=== PATIENT | male | born 1960 | race Caucasian/White ===

== ENCOUNTER 2019-08-01 18:19 | Inpatient (IN) ==
[2019-08-01] MEDS ORDERED: NS 1,000 ML IV ONE ×2 (19:52→21:20)
[2019-08-01] MEDS ORDERED: GLUCAGON IV ONE (19:52)
[2019-08-01 20:24] LABS: AGAP 22; ALBUMIN 4.6 g/dL (3.5-5.0); ALKALINE PHOSPHATASE 91 U/L (32-122); BUN 23 mg/dL (8-22); CALCIUM 9.4 mg/dL (8.8-10.2); CHLORIDE 99 mmol/L (98-107); COSMO 294; ESTIMATED GFR > 60; GLUCOSE 270 mg/dL (70-104); GOT 12 U/L (10-34); GPT 22 U/L (10-44); POTASSIUM 4.1 mmol/L (3.5-5.1); SODIUM 141 mmol/L (136-145); TCO2 21 mmol/L (25-35)
[2019-08-01 20:39] LABS: BASO# 0.07 X1000 (0.0-0.2); BASO% 0.3 % (0.0-0.8); EOS# 0.02 X1000 (0.0-0.7); EOS% 0.1 % (0.0-10.0); HEMATOCRIT 48.6 % (42.0-52.0); HEMOGLOBIN 16.2 g/dL (14.0-18.0); IMM GRAN# 0.09 X1000 (0.0-0.04); IMM GRAN% 0.3 % (0.0-0.5); LYMPH# 2.43 X1000 (1.2-3.4); LYMPH% 9.2 % (20.5-51.1); MCH 29.8 PG (27-31); MCHC 33.3 g/dL (33-37); MCV 89.3 FL (81-99); MONO# 2.17 X1000 (0.11-0.59); MONO% 8.2 % (1.7-9.3); MPV 11.5 FL (7.4-10.4); NEUT# 21.53 X1000 (1.4-6.5); NEUT% 81.9 % (42.2-75.2); PLT 376 X1000 (130-400); RBC 5.44 XMIL (4.7-6.1); RDW 12.9 % (11.5-14.5); WBC 26.31 X1000 (4.8-10.8)
--- NOTE | 2019-08-01 20:58 | Diag Imaging Result Doc PS360 ---
EXAM: CHEST-1 VIEW - 08/01/2019 HISTORY: food bolus, concern for aspiration. TECHNIQUE: Portable chest COMPARISON: None. FINDINGS: There is a large right pneumothorax. There is some depression of the right hemidiaphragm and there is mild cardiomediastinal shift to the left, which suggests associated tension. There is no consolidation or pleural effusion identified. Heart size is normal. IMPRESSION: Large pneumothorax on the right, with evidence of tension. This report was discussed with Dr. Ana Cristina Archibald on 08/01/2019 at 8:53 PM and was readback. Electronically signed by Adam Cisneros 08/01/2019 8:56 PM
[2019-08-01] MEDS ORDERED: FENTANYL ONE (21:09)
[2019-08-01] MEDS ORDERED: FENTANYL IV ONE (21:12)
[2019-08-01] MEDS ORDERED: NS 1,000 ML ONE (21:14)
[2019-08-01] MEDS ORDERED: XYLOCAINE-MPF 1% ONE (21:18)
[2019-08-01] MEDS ORDERED: XYLOCAINE-MPF 1% INJ ONE (21:25)
--- NOTE | 2019-08-01 22:14 | Diag Imaging Result Doc PS360 ---
EXAM: CHEST-PORTABLE - 08/01/2019 HISTORY: POST CHEST TUBE TECHNIQUE: Portable chest COMPARISON: Prior portable chest of 08/01/2019 FINDINGS: There are two images obtained. There has been interval placement of a right chest tube, which appears to have been repositioned between the two images. On the second image, the tip of the tube is located at the medial mid right thorax. There has been associated resolution or near resolution of the previous large right pneumothorax. There is no consolidation or pleural effusion identified. Heart size is normal. IMPRESSION: Interval placement of right chest tube, with associated resolution or near resolution of the previous right pneumothorax. Electronically signed by Adam Cisneros 08/01/2019 10:12 PM
--- NOTE | 2019-08-01 22:31 | PROVIDER DOCUMENTATION ---
This chart was entered by Isis Silverio Scribe, acting as scribe for Ana Cristina Archibald DO. HPI-General Adult - General Chief Complaint: Foreign Body/Throat Stated Complaint: FOREIGN OBJECT - THROAT Time Seen by Provider: 08/01/19 19:39 Source: patient Allergies/Adverse Reactions: Patient Allergies Allergy/AdvReac Type Severity Reaction Status Date / Time No Known Allergies Allergy Verified 08/01/19 18:32 Home Medications: Home Medication List Medication Instructions Recorded Confirmed Last Taken Type Glimepiride 1 tab PO DIRECTED 03/08/18 08/01/19 Unknown History Escitalopram Oxalate [Lexapro] 20 mg PO DAILY 08/02/19 08/02/19 Unknown History - History of Present Illness -Gen Adult Nature of Presenting Problems: pt is a 58 yr old male presenting with complaint of pork stuck in throat x 24 hours. pt reports yesterday afternoon while eating a BBQ sandwich a peice became stuck in his throat and he has not been able to get it to go up or down. pt now unable to pass salvia, unable to eat or drink since onset. pt reports hx of similar episode 3 months ago but it passed without intervention Location of Pain/Injury: reports: other (throat) Pain Radiation: reports: no radiation Quality of Pain: reports: fullness Severity: reports: moderate Onset/Duration: reports: 24 hours ago (1500) Timing: reports: still present Context/Activities at Onset: reports: eating (BBQ pork sandwich) Modifying Factors: improves with: other (unable to eat, drink or swallow salvia) Similar Symptoms Previously?: Yes Recently seen or treated by another doctor?: No Review of Systems - Adult - REVIEW OF SYSTEMS - ADULT Constitutional: reports: weight loss. denies: chills, fever, fatique Eyes: reports: no symptoms reported Ears, Nose, Mouth & Throat: reports: other (forgein body in throat) Cardiovascular: denies: chest pain, palpitations, syncope Gastrointestinal: reports: difficulty swallowing. denies: abdominal pain, nausea, vomiting Genitourinary: reports: no symptoms reported Musculoskeletal: reports: no symptoms reported Integumentary: reports: no symptoms reported Past History - Adult - PAST MEDICAL HISTORY-ADULT Review of Records: reports: Old Records Reviewed, Nursing Assessment Review, Medications Reviewed, Social history reviewed & non-contributory. Major Childhood Illnesses: reports: denies history Cardiovascular: reports: denies history Respiratory: reports: denies history Gastrointestinal: reports: denies history Obstetrical/Gynecological: reports: denies history Genitourinary: reports: denies history Musculoskeletal: reports: denies history Neurological: reports: denies history Endocrine/Immune: reports: Diabetes Other Conditions: reports: denies history - IMMUNIZATION STATUS Childhood Immunizations: See Nurse Assessment Flu Vaccine: See Nurse Assessment - FAMILY HISTORY Family History: reviewed, not pertinent - SOCIAL HISTORY Smoking: cigarettes Provider spent 3-5 mins advising pt. on dangers of tobacco.: Discussed manners to quit use, and f/u contacts for add'l counseling. Substance Use: denies Living Situation: family Physical Exam-General - PHYSICAL EXAM-ADULT Initial Vital Signs Reviewed: Yes - CONSTITUTIONAL General Appearance: appears well, alert, no apparent distress, thin - EYES Eyes: PERRL/EOMI - HEAD, EARS, NOSE, MOUTH & THROAT HENMT: moist mucous membranes - NECK Neck: non-tender, full range of motion, supple, normal inspection - RESPIRATORY Respiratory: chest non-tender, lungs clear, normal breath sounds - CARDIOVASCULAR Cardiovascular: normal peripheral pulses, no edema, tachycardia - GASTROINTESTINAL (ABDOMEN) Abdominal Exam: normal bowel sounds, non tender, soft - LYMPHATIC Lymphatic: no adenopathy - MUSCULOSKELETAL Back Exam: normal inspection, no CVA tenderness, no vertebral tenderness Extremity: normal range of motion, non-tender, normal gait, normal inspection - SKIN Integumentary: normal color, normal turgor, warm/dry - NEUROLOGIC Neurologic: grossly normal - PSYCHIATRIC Psych/Mental Status: normal mood/affect Progress - PLAN OF CARE/RESULTS Progress/Plan/Lab Results: Vital Signs - 8 hr 08/01/19 18:25 08/01/19 19:00 08/01/19 19:15 Temperature 98.9 F Pulse Rate 121 H 94 H 105 H Respiratory Rate 20 25 H Blood Pressure 140/85 138/91 145/86 O2 Sat by Pulse Oximetry 94 L 94 L 94 L Orders Category Date Time Status Cardiac Monitoring DIRECTED Care 08/01/19 18:48 Active Oxygen Therapy- ED Nursing DIRECTED Care 08/01/19 18:49 Active Saline Loc NOW Care 08/01/19 18:48 Active CHEST-1 VIEW [RAD] Stat Exams 08/01/19 19:52 Ordered CBC WITH ELECTRONIC DIFF [HEME] Stat Lab 08/01/19 19:51 Uncollected COMPREHENSIVE METABOLIC PANEL [CHEM] Stat Lab 08/01/19 19:52 Uncollected 0.9% Sodium Chloride Inj [Ns] 1,000 ml Med 08/01/19 19:52 Active IV 999 mls/hr Glucagon Med 08/01/19 19:52 Discontinued 1 mg IV NOW ONE Pt has a 100% R ptx. Chest tube placed without difficulty. His food bolus appeared to pass with Glucagon. Clinically stable after tube placement. Admitted to hospitalist for further treatment. I suspect that his apparent food bolus was secondary to mechanical pressure on the esophagus from the PTX. Result Diagrams: 08/01/19 18:40 08/01/19 18:40 - XRAY 1 XRAY Study: Chest Impression: Abnormal ( EXAM: CHEST-1 VIEW - 08/01/2019 HISTORY: food bolus, concern for aspiration. TECHNIQUE: Portable chest COMPARISON: None. FINDINGS: There is a large right pneumothorax. There is some depression of the right hemidiaphragm and there is mild cardiomediastinal shift to the left, which suggests associated tension. There is no consolidation or pleural effusion identified. Heart size is normal. IMPRESSION: Large pneumothorax on the right, with evidence of tension. This report was discussed with Dr. Ana Cristina Archibald on 08/01/2019 at 8:53 PM and was readback. Electronically signed by Adam Cisneros 08/01/2019 8:56 PM 08/01/192055 Interpreting Physician: Adam Cisneros MD Dictated Date/Time: 08/01/192050 cc: Ana Cristina Archibald DO; Rolando Baird Jr, MD), See EMR Report 2 XRAY Study: Chest (chest tube placement) Impression: Abnormal (Signed EXAM: CHEST-PORTABLE - 08/01/2019 HISTORY: POST CHEST TUBE TECHNIQUE: Portable chest COMPARISON: Prior portable chest of 08/01/2019 FINDINGS: There are two images obtained. There has been interval placement of a right chest tube, which appears to have been repositioned between the two images. On the second image, the tip of the tube is located at the medial mid right thorax. There has been associated resolution or near resolution of the previous large right pneumothorax. There is no consolidation or pleural effusion identified. Heart size is normal. IMPRESSION: Interval placement of right chest tube, with associated resolution or near resolution of the previous right pneumothorax. Electronically signed by Adam Cisneros 08/01/2019 10:12 PM 08/01/192211 Interpreting Physician: Adam Cisneros MD Dictated Date/Time: 08/01/192207 cc: Ana Cristina Archibald DO; Rolando Baird Jr, MD), See EMR Report Comparison with other Films: changes noted Procedures - CHEST TUBE Right Mid-Axillary Chest Consent Form Signed?: Yes Time-Out Verification Completed?: Yes Size of Greenlandic Tube (cm): 28 Site Prepped: Chlorhexidine Anesthetic: 1% Volume of Anesthesia (ml's): 8 Sherman of Air Eaton: Yes Number of Attempts: 1 Connected to Wall Suction?: Yes Tube Sutured to Skin: Yes Placement Verified by XRAY?: Yes Departure - Departure Date of Disposition Decision: 08/01/19 Time of Disposition Decision: 22:30 DIAGNOSIS: Spontaneous tension pneumothorax Food impaction of esophagus Qualifiers: Encounter type: initial encounter Qualified Code(s): T18.128A - Food in esophagus causing other injury, initial encounter Disposition: ADMITTED INPATIENT 09 Certified Medical Emergency: Emergent Condition: Fair - Critical Care Note This patient required my direct & personal management of CC.: No Attestation - Physician/ DANNY Attestation The physician spent face to face time with patient:: Yes Advanced Practice Provider documentation review:: Supervising physician onsite and consulted in the evaluation and care of this patient. The physician did have a face to face encounter with the patient. This chart was documented by the indicated scribe, (Isis Silverio Scribe) and accurately reflects the services I performed and decisions made by me, Ana Cristina Archibald DO, as attested by the provider's signature.
[2019-08-01] MEDS ORDERED: ZOFRAN IV PRN (23:41)
[2019-08-02 08:17] LABS: AGAP 15; BUN 21 mg/dL (8-22); CALCIUM 8.7 mg/dL (8.8-10.2); CHLORIDE 101 mmol/L (98-107); COSMO 290; CREATININE 0.7 mg/dL (0.7-1.2); ESTIMATED GFR > 60; GLUCOSE 277 mg/dL (70-104); POTASSIUM 4.5 mmol/L (3.5-5.1); SODIUM 139 mmol/L (136-145); TCO2 23 mmol/L (25-35)
[2019-08-02 08:18] LABS: HEMATOCRIT 45.3 % (42.0-52.0); HEMOGLOBIN 15.2 g/dL (14.0-18.0); MCH 29.7 PG (27-31); MCHC 33.6 g/dL (33-37); MCV 88.6 FL (81-99); MPV 10.9 FL (7.4-10.4); RBC 5.11 XMIL (4.7-6.1); RDW 12.8 % (11.5-14.5); WBC 30.01 X1000 (4.8-10.8)
[2019-08-02] MEDS ORDERED: MORPHINE IV ONE (08:21)
[2019-08-02] MEDS ORDERED: ZOFRAN IV PRN (08:59)
[2019-08-02] MEDS ORDERED: TYLENOL PO PRN (08:59)
[2019-08-02] MEDS: NORCO-7.5 PO PRN ×3 (10:28→20:47)
[2019-08-02] MEDS: ZOSYN 3.375 GM in NS 50 ML IV SCH ×3 (10:28→21:04)
[2019-08-02] MEDS: HUMALOG (PARKWAY) SUBQ SCH ×3 (12:08→20:47)
--- NOTE | 2019-08-02 14:59 | HISTORY AND PHYSICAL ---
PRIMARY CARE PROVIDER: Dr. Rolando Baird. CHIEF COMPLAINT: Choking on pork sandwich, gagging with shortness of breath. HISTORY OF PRESENT ILLNESS: Mr. Natarajan is a 58-year-old male who carries a past medical history of diabetes mellitus, situational depression, arthritis in joint. He reports yesterday he was eating a pork sandwich, he felt like he got stuck in his throat. He reports gagging a lot with no vomitus. He then became short of breath, he came to the ED since he was not able to pass his saliva or eat or drink. He reported a similar episode 3 months ago, but it passed without any further intervention. He started swallowing better after he was given some glucagon; however, his shortness of breath continued. They did a chest x-ray that showed a large tension pneumothorax. The ED physician placed a chest tube, and was going to be admitted to [facility]; however, there were no beds available so he has been admitted to [facility], and we will consult General Surgery. PAST MEDICAL HISTORY: 1. Diabetes mellitus. 2. Situational depression. 3. Arthritis of the joints, ankles, knees, hips, shoulders. PAST SURGICAL HISTORY: Double hernia repair. SOCIAL HISTORY: He is . He was a 2 pack per day smoker for 20 years, the last 2 months he has cut down to 1 pack per day. No alcohol. Occasional marijuana. FAMILY HISTORY: Father was diabetic, coronary artery disease. He went in for a quadruple bypass and never made it out of surgery. Uncle who is of an GA, also had diabetes. Mother with breast cancer, still living. REVIEW OF SYSTEMS: Twelve-point review of systems completely negative except for those mentioned in the HPI. No fever. No chills. No chest pain. He does complain of some tube site pain. No coughing more than his usual smoker's cough. No heart palpitations, nausea, vomiting, diarrhea, dizziness or syncope. ALLERGIES: No known drug allergies. HOME MEDICATION: 1. Lexapro 20 mg p.o. daily. 2. Glimepiride 1 tablet p.o. as directed. PHYSICAL EXAMINATION: VITAL SIGNS: Temperature is 98.2 degrees, heart rate 100, respirations 16, blood pressure 150/93, O2 saturation is 99% on room air. GENERAL: Mr. Natarajan is a pleasant 58-year-old male who is sitting up in the bed in no acute distress. HEENT: Atraumatic, normocephalic. PERRL. NECK: Supple. Trachea is midline. CARDIOVASCULAR: S1, S2 appreciated. No murmurs, gallops or rubs noted. RESPIRATORY: Lung sounds are clear bilaterally. GASTROINTESTINAL: Soft, flat, nontender, nondistended. Positive bowel sounds in x4 quadrants. EXTREMITIES: Negative for edema. NEUROLOGIC: No focal deficits noted. SKIN: The patient has a right chest tube. DIAGNOSTICS: Initial chest x-ray, large pneumothorax on the right with evidence of tension. Follow-up x-ray after chest tube placement showed resolution or near resolution of the right pneumothorax. LABORATORY DATA: White count 26, H H 16 and 48, platelet count 376,000. Sodium 141, potassium 4.1, BUN 23, creatinine 1, blood glucose was 270. The patient was given glucagon. ASSESSMENT AND PLAN: 1. Food impaction that has cleared. 2. Spontaneous tension pneumothorax status post right chest tube placement. We will consult General Surgery. Serial chest x-rays. The patient was taught how to splint, turn cough and deep breathe. P.r.n. pain medication. I believe this is caused from severe gagging secondary to mechanical pressure on the esophagus. He reports he is swallowing well now. 3. Questionable dysphagia. The patient had a similar episode 3 months ago. We will have him follow up with GI to see if he needs any type of dilatation on an outpatient basis. 4. Diabetes mellitus. We will start him on pattern blood sugars with fingersticks. 5. Situational depression. Continue Lexapro. 6. Arthritis. Aware. 7. Further recommendation to follow physician follow up. 8. Leukocytosis likely reactive to #1 and #2. Dictated by JOSE Santa for Loi Rock MD cc: MD Loi Jamison MD
--- NOTE | 2019-08-02 21:08 | HISTORY AND PHYSICAL ---
ADDENDUM: Patient seen and examined by myself. Full note dictated and discussed with nurse practitioner. The patient presented to the hospital, thinking that he had something stuck in his throat; however, upon evaluation he was noted to have a spontaneous pneumothorax. Chest tube was placed. He currently is awake, alert. He is in no distress. He notes that he is overall feeling tremendously better. We are going to continue him in the hospital. We will ask Surgery for assistance from managing his chest tube and will follow. cc: Loi Rock MD
[2019-08-03] MEDS: NORCO-7.5 PO PRN ×5 (01:35→22:59)
[2019-08-03] MEDS: ZOSYN 3.375 GM in NS 50 ML IV SCH ×4 (04:11→22:29)
[2019-08-03] MEDS: HUMALOG (PARKWAY) SUBQ SCH ×4 (06:00→22:16)
--- NOTE | 2019-08-03 07:43 | Diag Imaging Result Doc PS360 ---
CHEST-PORTABLE - 08/03/2019 INDICATION: cxt COMPARISON: 08/01/2019 FINDINGS: Stable right chest tube in the midlung. The lungs are clear. Heart size is normal. No pneumothorax or pleural effusion. IMPRESSION: Negative exam. Electronically signed by Rolando Hidalgo 08/03/2019 7:41 AM
--- NOTE | 2019-08-03 13:07 | PROGRESS NOTE ---
DATE: 08/03/2019 SUBJECTIVE: Patient denies having any acute complaints this morning and feels well. OBJECTIVE: Vital Signs: Temperature 97.6 degrees, pulse 79 per minute, respiratory rate 16 per minute, blood pressure 158/89, pulse oximetry 99% on room air. General: Patient is alert and oriented x3. He does not appear to be in any acute distress. Cardiovascular: First and second heart sounds are audible without any murmurs or gallops. Respiratory: Lung air entry is slightly decreased but there are no rales or rhonchi present on auscultation. Gastrointestinal: Abdomen is soft and nondistended. Normal bowel sounds are present. DIAGNOSTIC DATA: Chest x-ray obtained this morning showed stable right chest tube in the mid lung with clear lungs. No pneumothorax or pleural effusion seen. Labs from yesterday were reviewed that showed WBC count of 30.01. IMPRESSION: 1. Right-sided spontaneous tension pneumothorax. 2. Leukocytosis. 3. Dysphagia. 4. Type 2 diabetes mellitus. PLAN: We will continue with supportive care, and he will be continued on broad-spectrum antibiotics with Zosyn because of significant leukocytosis. Surgery is following his chest tube, and they will decide when the chest tube needs to be taken out. We will also continue with Lispro insulin as per sliding scale for his diabetes. I discussed with him since he had an episode of swallowing difficulty and impaction of food in his esophagus before he came to the hospital. Right now, he is not having any issues, but he will need to be evaluated by Gastroenterology once he is discharged from the hospital. cc: Veena Sesay MD
--- NOTE | 2019-08-03 19:06 | CONSULTATION ---
DATE OF CONSULTATION: 08/03/2019 REASON FOR CONSULTATION/HISTORY OF PRESENT ILLNESS: Mr. Issac Natarajan is a 58-year-old, white male, smoker with COPD, who presented to our emergency department with chest pain. Chest x- ray documented a spontaneous pneumothorax. A right chest tube was placed by the ED team, and we were asked to manage the chest tube and his air leak. On exam today, Mr. Natarajan is in no acute distress. He is a middle-aged white male, slim, with a barrel chest. He has mild work of breathing. He has a right chest tube in place. He continues to have an air leak through this chest tube. He is tolerating a diet and hemodynamically satisfactory. DIAGNOSTIC DATA: Chest x-ray this morning documented complete expansion of his lung and the chest tube was in good position. PLAN: We will take him off suction, despite his persistent air leak, in hopes that will allow his air leak to seal maybe quicker. I spoke with the nurse, and if he has any symptoms, I want the right chest tube placed back to suction. We will check another chest x-ray in the morning. For now, he needs to keep the chest tube. I will advance his diet to a regular diet. cc: Eloina Chaudhry MD
[2019-08-03] MEDS ORDERED: ZOSYN 3.375 GM in NS 50 ML IV SCH (22:30)
[2019-08-04] MEDS: ZOSYN 3.375 GM in NS 50 ML IV SCH ×4 (00:26→18:31)
[2019-08-04] MEDS: NORCO-7.5 PO PRN ×5 (02:59→22:42)
[2019-08-04] MEDS: HUMALOG (PARKWAY) SUBQ SCH ×4 (06:07→22:42)
[2019-08-04 07:17] LABS: BASO# 0.07 X1000 (0.0-0.2); BASO% 0.4 % (0.0-0.8); EOS# 0.27 X1000 (0.0-0.7); EOS% 1.5 % (0.0-10.0); HEMATOCRIT 45.2 % (42.0-52.0); IMM GRAN# 0.04 X1000 (0.0-0.04); IMM GRAN% 0.2 % (0.0-0.5); LYMPH# 3.85 X1000 (1.2-3.4); LYMPH% 21.5 % (20.5-51.1); MCH 29.2 PG (27-31); MCHC 33.2 g/dL (33-37); MCV 88.1 FL (81-99); MONO# 2.33 X1000 (0.11-0.59); MPV 11.3 FL (7.4-10.4); NEUT# 11.37 X1000 (1.4-6.5); NEUT% 63.4 % (42.2-75.2); PLT 286 X1000 (130-400); RBC 5.13 XMIL (4.7-6.1); RDW 12.5 % (11.5-14.5); WBC 17.93 X1000 (4.8-10.8)
--- NOTE | 2019-08-04 07:29 | Diag Imaging Result Doc PS360 ---
CHEST-PORTABLE - 08/04/2019 INDICATION: cxt COMPARISON: 08/03/2019 FINDINGS: Stable right midlung chest tube. There is a moderately large right apical pneumothorax. This measures about 4.5 cm, around 40%. The left lung remains clear. IMPRESSION: Moderately large right apical pneumothorax in spite of the chest tube in good position. Electronically signed by Rolando Hidalgo 08/04/2019 7:27 AM
[2019-08-04 07:40] LABS: AGAP 13; BUN 15 mg/dL (8-22); CALCIUM 8.6 mg/dL (8.8-10.2); CHLORIDE 99 mmol/L (98-107); COSMO 281; CREATININE 0.5 mg/dL (0.7-1.2); ESTIMATED GFR > 60; GLUCOSE 205 mg/dL (70-104); POTASSIUM 3.7 mmol/L (3.5-5.1); SODIUM 137 mmol/L (136-145); TCO2 25 mmol/L (25-35)
[2019-08-04] MEDS: LEXAPRO PO SCH (09:13)
--- NOTE | 2019-08-04 11:52 | Diag Imaging Result Doc PS360 ---
CHEST-PORTABLE - 08/04/2019 10:51 AM INDICATION: Pneumothorax COMPARISON: 08/04/2018 6:03 AM FINDINGS: Stable right chest tube in good position. There has been resolution of the right pneumothorax. No infiltrates or other abnormalities. IMPRESSION: Resolution of the right pneumothorax. Electronically signed by Rolando Hidalgo 08/04/2019 11:50 AM
--- NOTE | 2019-08-04 12:17 | PROGRESS NOTE ---
DATE: 08/04/2019 SUBJECTIVE: The patient states that he had a rough night and actually, early this morning, he had disconnected chest tube connector, because of which he ended up having right-sided hemothorax again, after which the tube had to be reconnected and since then he feels somewhat better. OBJECTIVE: Vital Signs: Temperature 98.7 degrees, pulse 85 per minute, respiratory rate 18 per minute, blood pressure 126/85, pulse ox 98% on room air. General: The patient is alert and oriented X3, he does not appear to be in any acute distress. Cardiovascular: First and second heart sounds are audible without any murmurs or gallops. Respiratory: Right-sided air entry is slightly decreased, but there are no rales or rhonchi present on auscultation. GI: Abdomen is benign. DIAGNOSTIC DATA: CBC shows improvement of his white blood cell count from 30.01 to 17.93. The rest of the CBC is nondiagnostic. Basic metabolic panel shows glucose level of 205. The rest of the basic metabolic panel is nondiagnostic. Chest x-ray done this morning shows moderately large right apical pneumothorax. IMPRESSION: 1. Right-sided spontaneous tension pneumothorax. 2. Leukocytosis that has partially improved. 3. Dysphagia that is now stable. 4. Type 2 diabetes mellitus. PLAN: We will continue to provide him supportive care, including broad-spectrum antibiotics with Zosyn because of significant leukocytosis. Surgery is following his chest tube, and I will repeat a chest x-ray this afternoon to document improvement of his pneumothorax since the connector was dislodged, and air was sucked back into his right chest cavity. He is already feeling better, and I believe that clinically he has improved, but we will document it with a repeat chest x-ray. Will continue to provide him lispro insulin as per sliding scale for his diabetes control, and let Surgery follow the chest tube. Further recommendations will be as per General Surgery. cc: Veena Sesay MD
--- NOTE | 2019-08-04 14:19 | PROGRESS NOTE ---
DATE: 08/04/2019 Mr. Issac Haddad is a 58-year-old white male smoker with COPD who had a secondary spontaneous pneumothorax. A chest tube was placed in the emergency department. It appears to be in good position and functional. Yesterday I took the chest tube off suction but this morning a chest x- ray documented a recurrent pneumothorax which was symptomatic for him, so the chest tube has been placed back on suction and clinically he feels better. It does appear that his air leak is smaller today and therefore we will keep the chest tube on suction today, repeat a chest x-ray in the morning. If not making progress, he will have to be transferred to [facility] for possible thoracoscopy and pleurodesis. cc: Eloina Chaudhry MD
[2019-08-05] MEDS: ZOSYN 3.375 GM in NS 50 ML IV SCH ×4 (01:43→20:35)
[2019-08-05] MEDS: NORCO-7.5 PO PRN ×5 (03:41→20:36)
[2019-08-05] MEDS: HUMALOG (PARKWAY) SUBQ SCH ×4 (06:14→20:57)
--- NOTE | 2019-08-05 08:04 | Diag Imaging Result Doc PS360 ---
EXAM: CHEST-PORTABLE HISTORY: cxt TECHNIQUE: Single view of the chest was performed portably. COMPARISON: 08/04/2019 FINDINGS: The cardiomediastinal silhouette is within normal limits. There is a right-sided chest tube. The pulmonary vasculature is not congested. There may be a left-sided pneumothorax. Recommend expiratory PA chest radiograph if the patient is able. No right-sided pneumothorax. IMPRESSION: 1.Possible small left-sided pneumothorax . Recommend expiratory PA chest radiograph. 2.Right chest tube. No evidence for right suspicious pneumothorax. This report was discussed with Mahi/patient's nurse on 08/05/2019 at 8:00 AM with read back verification. Electronically signed by Rhonda Cee 08/05/2019 8:02 AM
[2019-08-05] MEDS: LEXAPRO PO SCH (08:05)
--- NOTE | 2019-08-05 08:39 | Diag Imaging Result Doc PS360 ---
EXAM: CHEST-PORTABLE HISTORY: Pneumothorax TECHNIQUE: Single view of the chest was performed portably. COMPARISON: 08/05/2019 FINDINGS: Expiratory radiograph was performed. No left pneumothorax is appreciated on the repeat examination. No right pneumothorax is identified with right chest tube in place. Heart size is normal. IMPRESSION: No evidence for left-sided pneumothorax consistent with artifact on the prior radiograph. Right chest tube in place. No evidence for right pneumothorax Electronically signed by Rhonda Cee 08/05/2019 8:37 AM
--- NOTE | 2019-08-05 19:44 | PROGRESS NOTE ---
DATE: 08/05/2019 Mr. Issac Natarajan remains hospitalized with a right chest tube for a secondary spontaneous pneumothorax because of COPD. This morning's chest x-ray showed an inflated right lung. I felt that his air leak last night was less. This evening he has no air leak. I am concerned that his right chest tube may be clotted, but he has no symptoms of chest pain or shortness of breath. We will leave his chest tube in, take it off suction, repeat a chest x-ray in the morning. If his lung is expanded, we will remove his chest tube. cc: Eloina Chaudhry MD
[2019-08-05 21:57] LABS: BASO# 0.06 X1000 (0.0-0.2); BASO% 0.4 % (0.0-0.8); EOS# 0.16 X1000 (0.0-0.7); EOS% 1.2 % (0.0-10.0); HEMATOCRIT 42.6 % (42.0-52.0); HEMOGLOBIN 14.4 g/dL (14.0-18.0); IMM GRAN# 0.03 X1000 (0.0-0.04); IMM GRAN% 0.2 % (0.0-0.5); LYMPH% 20.6 % (20.5-51.1); MCH 29.7 PG (27-31); MCHC 33.8 g/dL (33-37); MCV 87.8 FL (81-99); MONO# 1.38 X1000 (0.11-0.59); MONO% 10.2 % (1.7-9.3); MPV 11.1 FL (7.4-10.4); NEUT# 9.14 X1000 (1.4-6.5); NEUT% 67.4 % (42.2-75.2); PLT 291 X1000 (130-400); RBC 4.85 XMIL (4.7-6.1); RDW 12.5 % (11.5-14.5); WBC 13.57 X1000 (4.8-10.8)
[2019-08-06] MEDS: ZOSYN 3.375 GM in NS 50 ML IV SCH ×3 (01:57→13:30)
[2019-08-06] MEDS: NORCO-7.5 PO PRN ×6 (01:58→22:24)
[2019-08-06] MEDS: HUMALOG (PARKWAY) SUBQ SCH ×4 (06:22→22:25)
[2019-08-06 06:30] LABS: BASO# 0.09 X1000 (0.0-0.2); BASO% 0.8 % (0.0-0.8); EOS# 0.64 X1000 (0.0-0.7); EOS% 5.7 % (0.0-10.0); HEMATOCRIT 42.6 % (42.0-52.0); HEMOGLOBIN 14.3 g/dL (14.0-18.0); IMM GRAN# 0.03 X1000 (0.0-0.04); IMM GRAN% 0.3 % (0.0-0.5); LYMPH# 3.93 X1000 (1.2-3.4); LYMPH% 34.8 % (20.5-51.1); MCH 29.4 PG (27-31); MCHC 33.6 g/dL (33-37); MCV 87.7 FL (81-99); MONO# 1.23 X1000 (0.11-0.59); MONO% 10.9 % (1.7-9.3); MPV 10.6 FL (7.4-10.4); NEUT# 5.38 X1000 (1.4-6.5); NEUT% 47.5 % (42.2-75.2); PLT 307 X1000 (130-400); RBC 4.86 XMIL (4.7-6.1); RDW 12.5 % (11.5-14.5)
--- NOTE | 2019-08-06 07:53 | PROGRESS NOTE ---
DATE: 08/05/2019 SUBJECTIVE: Patient notes that he had an uneventful weekend where after the tube was clamped, he became more short of breath. Thankfully after unclamping his chest tube, symptoms have improved. Currently, he is feeling better. PHYSICAL: Vital Signs: Temperature 98, pulse 77, respiratory 18, BP 125/74. General: Patient is awake, alert. He is in no current respiratory distress, lying flatly in the bed, very pleasant to talk with. HEENT: Normocephalic. Neck: Supple. Cardiovascular: Regular rate. Chest: Relatively clear bilaterally. Abdomen: Soft. Extremities: Moves all extremities. ASSESSMENT: 1. Right-sided spontaneous pneumothorax, currently chest tube. Chest x-ray pending. 2. Dysphagia. 3. Type 2 diabetes. PLAN: We will continue to follow. Appreciate surgery's input. Chest x-ray is pending. cc: Loi Rock MD
--- NOTE | 2019-08-06 07:57 | Diag Imaging Result Doc PS360 ---
EXAM: CHEST-PORTABLE - 08/06/2019 HISTORY: R chest tube. TECHNIQUE: Portable chest COMPARISON: 08/05/2019 FINDINGS: Right chest tube remains with its tip at the mid right thorax. There is no discrete pneumothorax identified. The lungs appear clear except for mild linear atelectasis at the right base. There is no pleural effusion identified. Heart size is normal. IMPRESSION: Stable exam from prior. No discrete pneumothorax. Electronically signed by Adam Cisneros 08/06/2019 7:54 AM
[2019-08-06] MEDS: LEXAPRO PO SCH (08:57)
[2019-08-06] MEDS ORDERED: GLIMEPIRIDE PO SCH (17:30)
--- NOTE | 2019-08-06 18:24 | PROGRESS NOTE ---
DATE: 08/06/2019 SUBJECTIVE: The patient feels like he is breathing better. No major complaints. OBJECTIVE: Blood pressure 121/71, heart rate of 85, respiratory rate 18, temperature 98.5 degrees, 99% on room air.Cardiovascular: Regular rate and rhythm. Pulmonary: Bilateral breath sounds. Clear to auscultation. Gastrointestinal: Soft, nontender, nondistended. Bowel sounds are positive. Extremities: No clubbing or cyanosis. Lymphatic: No peripheral edema. Neurological: Nonfocal. LABORATORY DATA: White count 11, hemoglobin and hematocrit 14 and 42, platelets of 307,000. PROBLEM LIST: 1. Pneumothorax. Chest x-ray is pending. Seems to be doing okay. 2. Dysphagia, that is also resolving. 3. Type 2 diabetes. I guess they put him on antibiotics because he had leukocytosis up to 30,000, which may have been just reactive, but at this point, I think I am going to stop them. DISPOSITION: Pending clinical status, but once tube is pulled, anticipate discharge soon. cc: Phoenix Moreau MD
--- NOTE | 2019-08-06 19:59 | PROGRESS NOTE ---
DATE: 08/06/2019 SUBJECTIVE: Cheng Natarajan continues to have a right chest tube in for a secondary spontaneous pneumothorax because of COPD. We have had it to suction for at least 24 hours and the chest x-ray this morning showed no evidence of pneumothorax, so I pulled the tube this evening and dressed the exit site of the chest tube. He tolerated the removal of the chest tube well. There was no evidence of air leak before removal of this chest tube. We will keep him hospitalized overnight for safety. Recheck a chest x-ray in the morning and if his lung is inflated with no pneumothorax right side he can be discharged home. cc: Eloina Chaudhry MD
[2019-08-07] MEDS: HUMALOG (PARKWAY) SUBQ SCH ×2 (06:28→11:22)
[2019-08-07 07:27] VITALS: BP 140/75
--- NOTE | 2019-08-07 07:40 | Diag Imaging Result Doc PS360 ---
CHEST-PORTABLE - 08/07/2019 INDICATION: dyspnea COMPARISON: 08/06/2019 FINDINGS: The right chest tube has been removed. There is no pneumothorax. The lungs are clear and the heart size is normal. IMPRESSION: No pneumothorax. Electronically signed by Rolando Hidalgo 08/07/2019 7:38 AM
--- NOTE | 2019-08-07 08:33 | PROGRESS NOTE ---
DATE: 08/07/2019 Mr. Natarajan' chest x-ray this morning looks satisfactory. There is no recurrent pneumothorax on the right status post removal of a chest tube last night. From a surgical standpoint, I feel it is safe to discharge him to his home after reviewing his chest x-ray as long as the hospitalist feels medically he can be discharged. cc: Eloina Chaudhry MD
[2019-08-07] MEDS ORDERED: AMARYL PO SCH (09:00)
[2019-08-07] MEDS: LEXAPRO PO SCH (09:39)
[2019-08-07] MEDS: NORCO-7.5 PO PRN (09:56)
--- NOTE | 2019-08-07 14:26 | DISCHARGE SUMMARY ---
PRIMARY CARE PHYSICIAN: Rolando Baird MD ADMISSION DIAGNOSES: 1. Food impaction that cleared. 2. Spontaneous tension pneumothorax status post right chest tube placement. 3. Questionable dysphagia. 4. Diabetes. 5. Situational depression. 6. Arthritis. DISCHARGE DIAGNOSES: 1. Pneumothorax resolved. 2. Dysphagia that is resolving. 3. Diabetes type 2. 4. Leukocytosis, improved. SUMMARY OF FINDINGS: This is a 58-year-old male who presented to the ER after he was eating a pork sandwich and felt like it got stuck in his throat, reported gagging a lot with no vomitus, then became short of breath, so he came to the emergency room since he was not able to pass a saliva or eat or drink. He reported a similar episode 3 months prior, but it passed without any intervention. He started swallowing better after he was given some glucagon. However, his shortness of breath continued. We did an x-ray that showed a large tension pneumothorax. The ED physician placed a chest tube and he was admitted. Initially, we are going to transfer him to the [facility], but due to no beds, he was admitted here. We consulted general surgery who followed him. The food impaction cleared on its own and we removed his chest tube last night. His chest x-ray this morning looks satisfactory and from a surgical standpoint, they felt it was safe to discharge him home. His white blood cell count when he arrived was 26.31. The next morning went up to 30.01, but is now down to 11.30 and there were no clear signs of infection and it was felt that this is most likely reactive and so he is being discharged home. He is to have a chest x-ray, two-view, within a week for follow-up. DISCHARGE MEDICATIONS: Will include Lexapro 20 mg p.o. daily, and glimepiride 2 mg p.o. daily. FOLLOWUP: He will follow up with Dr. Chaudhry from General surgery on 08/14/2019 at 1:45 p.m. and he will also follow up with his primary care physician in the next 1 to 2 weeks and call their office for an appointment. TIME SPENT WITH PATIENT: This a 35 minute discharge. Dictated by JOSE Pennington for Phoenix Moreau MD cc: Amanda AdrianJOSE koroma MD Joel A. Powell, MD Lynn R. Buckner, MD
--- NOTE | 2019-08-08 06:11 | DISCHARGE SUMMARY ---
ADMISSION DATE: 08/01/2019 DISCHARGE DATE: 08/07/2019 The patient doing well day of discharge. His chest tube was actually pulled last night per Dr. Chaudhry. Greatly appreciate intervention. Chest x-ray this morning looks well. There is no residual pneumo. He will be discharged today. I did bump up his glimepiride a bit because his sugars are still not under great control. We have not done A1c since admission. I may get that added to his labs. In any case, he seems to be doing well. We will have him follow up chest x- ray in a week to make sure the pneumo is stable, and we will go from there. This is a face-to- face encounter note with JOSE Pennington. cc: Phoenix Moreau MD
--- NOTE | 2019-08-08 08:20 | DISCHARGE SUMMARY ---
ADMISSION DATE: 08/01/2019 DISCHARGE DATE: 08/07/2019 Patient is doing well. His chest tube was removed last night per Dr. Chaudhry. Chest x-ray looks clear. Plan is to discharge him today. Follow up in 1 week. We did make some adjustments in his glimepiride since his blood sugar is uncontrolled. This is a [id number] encounter note with JOSE Pennington cc: Phoenix Moreau MD
== END 2019-08-07 12:20 | disposition home or self-care (01) | DRG 201 ==
LOC: P.ED 18:19 → P.MEDSURG 23:54 → SUATTDRO 23:54
PROVIDERS: ATTEND Internal Medicine